=== PATIENT | male | born 1965 | race Hispanic/Latino ===

== ENCOUNTER → 2023-01-28 | Day surgery (SDC) | payer BC ==
[~2023-01-28] MED LIST: ACYCLOVIR800 MG PO; LACTATED RINGER'S 1,000 ML ONE; LOSARTAN-HCTZ1 EAC1 PO; PREDNISONE20 MG PO
[2023-01-28 09:05] VITALS: TEMP 97.7
[2023-01-28 09:35] VITALS: BP 124/78; PULSE 72; RESP 18; O2SAT 99
== END | disposition home or self-care (01) ==
LOC: OR 08:25
PROVIDERS: ATTEND Internal Medicine Gastroenterology
DX: Z12.11 Encounter for screening for malignant neoplasm of colon (principal); K64.8 Other hemorrhoids; I10 Essential (primary) hypertension; Z01.810 Encounter for preprocedural cardiovascular examination; Z79.899 Other long term (current) drug therapy; Z68.41 Body mass index [BMI] 40.0-44.9, adult
CPT/HCPCS: 45378; 93005; J7121